=== PATIENT | female | born 1970 | race Caucasian/White ===

== ENCOUNTER → 2016-10-15 | Outpatient (CLI) | payer OTHER | LOC: FIMAGING 13:07 | DX: Z12.31 Encounter for screening mammogram for malignant neoplasm of breast (principal) | CPT/HCPCS: G0202 ==

== ENCOUNTER → 2017-04-17 | Outpatient (CLI) | payer OTHER | LOC: FIMAGING 12:05 | PROVIDERS: ATTEND Advanced Practice Midwife | DX: O09.522 Supervision of elderly multigravida, second trimester (principal); O44.02 Complete placenta previa NOS or without hemorrhage, second trimester; Z3A.19 19 weeks gestation of pregnancy ==

== ENCOUNTER 2017-06-30 15:16 | Observation (INO) | payer OTHER ==
--- NOTE | 2017-06-30 16:38 | SOAPPROG ---
SOAP Progress Note Assessment/Plan: Assessment: Plan:
== END 2017-06-30 16:40 | disposition home or self-care (01) ==
LOC: FLD 15:16
PROVIDERS: ADMIT Advanced Practice Midwife; ATTEND Advanced Practice Midwife
DX: Z03.79 Encounter for other suspected maternal and fetal conditions ruled out (principal); Z3A.29 29 weeks gestation of pregnancy

== ENCOUNTER → 2017-07-04 | Outpatient (CLI) | payer OTHER | LOC: FIMAGING 11:12 | PROVIDERS: ATTEND Advanced Practice Midwife | DX: O09.523 Supervision of elderly multigravida, third trimester (principal); Z3A.30 30 weeks gestation of pregnancy ==

== ENCOUNTER 2018-09-26 21:36 | Emergency (ER) | payer OTHER ==
[2018-09-26 21:45] VITALS: BP 114/75
[2018-09-26] MEDS ORDERED: NS 1,000 ML IV ONE (22:03)
[2018-09-26] MEDS ORDERED: KETOROLAC 15 MG/1 ML SDV IVP ONE (22:03)
--- NOTE | 2018-09-26 22:07 | EDPHY ---
H & P Stated Complaint: Sinus infection and back pain Time Seen by Provider: 09/26/18 21:55 HPI/ROS: Chief Complaint: Sinus pain, chills, back pain HPI: Healthy 47 year woman presenting with several weeks of sinus congestion and sinus pain with worsening symptoms for the last 24 hr. Patient has developed chills and body aches and back pain. Some nausea but no vomiting. Cough which is nonproductive. 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 She has a penicillin allergy which cause rashes a child. No neck pain or stiffness. No rash. Both of her children have had similar episodes but they recovered within 2 days. No diarrhea or constipation. ROS: 10 systems were reviewed and were negative except those elements noted in the HPI. PMH: Denies Social History: No smoking Family History: non-contributory Physical Exam: Gen: Awake, Alert, No Distress HEENT: Face: Mild tenderness to percussion primarily over the right maxillary sinus Ears: TMs are normal Nose: no rhinorrhea Eyes: PERRLA, EOMI Mouth: Moist mucosa Neck: Supple, no JVD, no meningismus Chest: nontender, lungs clear to auscultation Heart: S1, S2 normal, no murmur Abd: Soft, non-tender, no guarding Back: no CVA tenderness, no midline tenderness Ext: no edema, non-tender Skin: no rash Neuro: CN II-XII intact, Sensation grossly intact, Strength 5/5 in bilateral upper and lower extremities - Personal History LMP (Females 10-55): 8-14 Days Ago Current Tetanus/Diphtheria Vaccine: Yes Current Tetanus Diphtheria and Acellular Pertussis (TDAP): Yes - Medical/Surgical History Hx Asthma: No Hx Chronic Respiratory Disease: No Hx Diabetes: No Hx Cardiac Disease: No Hx Renal Disease: No Hx Cirrhosis: No Hx Alcoholism: No Hx HIV/AIDS: No Hx Splenectomy or Spleen Trauma: No Other PMH: PMH: , current placenta previa, RH neg, AMA. PSH: breast augmentation, L hand thumb-torn ligament, TAB - Social History Smoking Status: Never smoked Constitutional: Initial Vital Signs Temperature (C) 37.4 C 09/26/18 21:42 Heart Rate 64 09/26/18 21:42 Respiratory Rate 16 09/26/18 21:42 Blood Pressure 114/75 09/26/18 21:42 O2 Sat (%) 97 09/26/18 21:42 O2 Delivery Mode Room Air Allergies/Adverse Reactions: adhesive tape Allergy (Mild, Verified 09/26/18 21:41) Itching Penicillins Allergy (Mild, Verified 09/26/18 21:41) Rash Home Medications: Medication Instructions Recorded NK [No Known Home Meds] 09/26/18 Medical Decision Making - Data Points Laboratory Results: Laboratory Results 09/26/18 22:17 09/26/18 22:17 09/26/18 09/26/18 09/26/18 23:47 23:15 22:17 WBC RBC Hgb Hct MCV MCH MCHC RDW Plt Count MPV Neut % (Auto) Lymph % (Auto) [place] % (Auto) Eos % (Auto) Baso % (Auto) Nucleat RBC Rel Count Absolute Neuts (auto) Absolute Lymphs (auto) Absolute Monos (auto) Absolute Eos (auto) Absolute Basos (auto) Absolute Nucleated RBC Immature Gran % Immature Gran # Sodium Potassium Chloride Carbon Dioxide Anion Gap BUN Creatinine Estimated GFR Glucose Calcium Creatine Kinase 32 IU/L IU/L (0-156) Urine Color PALE YELLOW Urine Appearance CLEAR Urine pH 6.0 (5.0-7.5) Ur Specific [place] 1.008 (1.002-1.030) Urine Protein NEGATIVE (NEGATIVE) Urine Ketones NEGATIVE (NEGATIVE) Urine Blood 2+ H (NEGATIVE) Urine Nitrate NEGATIVE (NEGATIVE) Urine Bilirubin NEGATIVE (NEGATIVE) Urine Urobilinogen NEGATIVE EU EU (0.2-1.0) Ur Leukocyte Esterase NEGATIVE (NEGATIVE) Urine RBC 1-3 /hpf /hpf (0-3) Urine WBC 1-3 /hpf /hpf (0-3) Ur Epithelial Cells TRACE /lpf /lpf (NONE-1+) Urine Mucus TRACE /lpf /lpf (NONE-1+) Urine Glucose NEGATIVE (NEGATIVE) Nasal Influenza A PCR NEGATIVE FOR FLU A (NEGATIVE) Nasal Influenza B PCR NEGATIVE FOR FLU B (NEGATIVE) 09/26/18 09/26/18 22:17 22:17 WBC 6.81 10^3/uL 10^3/uL (3.80-9.50) RBC 4.33 10^6/uL 10^6/uL (4.18-5.33) Hgb 13.2 g/dL g/dL (12.6-16.3) Hct 39.4 % % (38.0-47.0) MCV 91.0 fL fL (81.5-99.8) MCH 30.5 pg pg (27.9-34.1) MCHC 33.5 g/dL g/dL (32.4-36.7) RDW 12.3 % % (11.5-15.2) Plt Count 284 10^3/uL 10^3/uL (150-400) MPV 9.2 fL fL (8.7-11.7) Neut % (Auto) 69.7 % % (39.3-74.2) Lymph % (Auto) 20.1 % % (15.0-45.0) [place] % (Auto) 9.1 % % (4.5-13.0) Eos % (Auto) 0.4 % L % (0.6-7.6) Baso % (Auto) 0.4 % % (0.3-1.7) Nucleat RBC Rel Count 0.0 % % (0.0-0.2) Absolute Neuts (auto) 4.74 10^3/uL 10^3/uL (1.70-6.50) Absolute Lymphs (auto) 1.37 10^3/uL 10^3/uL (1.00-3.00) Absolute Monos (auto) 0.62 10^3/uL 10^3/uL (0.30-0.80) Absolute Eos (auto) 0.03 10^3/uL 10^3/uL (0.03-0.40) Absolute Basos (auto) 0.03 10^3/uL 10^3/uL (0.02-0.10) Absolute Nucleated RBC 0.00 10^3/uL 10^3/uL (0-0.01) Immature Gran % 0.3 % % (0.0-1.1) Immature Gran # 0.02 10^3/uL 10^3/uL (0.00-0.10) Sodium 136 mEq/L mEq/L (135-145) Potassium 3.4 mEq/L L mEq/L (3.5-5.2) Chloride 102 mEq/L mEq/L (97-110) Carbon Dioxide 22 mEq/l mEq/l (22-31) Anion Gap 12 mEq/L mEq/L (6-14) BUN 15 mg/dL mg/dL (7-23) Creatinine 0.7 mg/dL mg/dL (0.6-1.0) Estimated GFR > 60 Glucose 101 mg/dL H mg/dL (70-100) Calcium 9.3 mg/dL mg/dL (8.5-10.4) Creatine Kinase Urine Color Urine Appearance Urine pH Ur Specific [place] Urine Protein Urine Ketones Urine Blood Urine Nitrate Urine Bilirubin Urine Urobilinogen Ur Leukocyte Esterase Urine RBC Urine WBC Ur Epithelial Cells Urine Mucus Urine Glucose Nasal Influenza A PCR Nasal Influenza B PCR Medications Given: Discontinued Medications Sodium Chloride (Ns) 1,000 mls @ 0 mls/hr IV ONCE ONE; Wide Open PRN Reason: Protocol Stop: 09/26/18 22:04 Last Admin: 09/26/18 22:14 Dose: 1,000 mls Ketorolac Tromethamine (Toradol) 15 mg IVP EDNOW ONE Stop: 09/26/18 22:04 Last Admin: 09/26/18 22:15 Dose: 15 mg Oxymetazoline HCl (Afrin Nasal [place]) 2 sprays EACHNARE EDNOW ONE Stop: 09/26/18 23:17 Last Admin: 09/26/18 23:24 Dose: 2 sprays Departure - Departure Disposition: Home, Routine, Self-Care Clinical Impression: Sinusitis Condition: Good Instructions: Sinusitis (ED) Additional Instructions: May take Afrin nasal spray, 2 sprays in each nostril twice a day for 3 days only. Continue taking your antibiotics. Follow up with Ear Nose and Throat doctor in 2-3 days for further evaluation. Referrals: Keerthi Vidales MD [Primary Care Provider] - As per Instructions Kaiden Mauricio MD [Medical Doctor] - As per Instructions
[2018-09-26 22:47] LABS: PLATELET COUNT 284 10^3/uL (150-400)
[2018-09-26] MEDS ORDERED: OXYMETAZOLINE 30 ML NASAL SPRAY ONE (23:14)
[2018-09-26] MEDS ORDERED: OXYMETAZOLINE 30 ML NASAL SPRAY EACHNARE ONE (23:16)
[2018-09-27 00:24] LABS: CREATINE KINASE 32 IU/L (0-156)
== END 2018-09-27 00:39 | disposition home or self-care (01) ==
DX: J32.9 Chronic sinusitis, unspecified (principal); E86.9 Volume depletion, unspecified
CPT/HCPCS: J1885

== ENCOUNTER → 2018-11-14 | Outpatient (CLI) | payer OTHER | LOC: FIMAGING 12:52 | PROVIDERS: ATTEND Internal Medicine | DX: Z53.09 Procedure and treatment not carried out because of other contraindication (principal) ==